=== PATIENT | female | born 1950 | race Caucasian/White ===

== ENCOUNTER → 2017-01-26 08:55 | Outpatient (CLI) | payer MEDICARE, OTHER | END | disposition home or self-care (01) | LOC: D.RAD 08:55 | DX: M25.512 Pain in left shoulder (principal) ==

== ENCOUNTER 2017-02-24 18:13 | Emergency (ER) | payer MEDICARE, OTHER | END 2017-02-24 23:06 | disposition home or self-care (01) | LOC: D.ER 18:13 | DX: S43.005A Unspecified dislocation of left shoulder joint, initial encounter (principal); W18.2XXA Fall in (into) shower or empty bathtub, initial encounter; Y93.E1 Activity, personal bathing and showering; Y92.022 Bathroom in mobile home as the place of occurrence of the external cause; S42.92XA Fracture of left shoulder girdle, part unspecified, initial encounter for closed fracture ==

== ENCOUNTER → 2018-11-13 07:01 | Outpatient (CLI) | payer MEDICARE, OTHER | END | disposition home or self-care (01) | LOC: D.US 07:01 | PROVIDERS: ATTEND Family Medicine | DX: M54.2 Cervicalgia (principal) ==

== ENCOUNTER → 2019-06-04 13:06 | Outpatient (CLI) | payer MEDICARE, OTHER | END | disposition home or self-care (01) | LOC: D.CT 13:06 | PROVIDERS: ATTEND Family Medicine | DX: R59.0 Localized enlarged lymph nodes (principal) ==